=== PATIENT | female | born 1990 | race Caucasian/White ===

== ENCOUNTER 2018-02-19 13:21 | Emergency (ER) | payer MEDICAID ==
[2018-02-19] MEDS ORDERED: Lorazepam 2 MG/ML VIAL ONE (13:52)
--- NOTE | 2018-02-19 14:17 | CT ---
CT BRAIN WITHOUT CONTRAST: Date: 02/19/18 HISTORY: Trauma. Seizure. COMPARISON: None. FINDINGS: No acute territorial infarct or hemorrhage. No midline shift or mass effect. Paranasal sinuses and ma stoids are clear. IMPRESSION: No acute intracranial abnormality. POS: [facility]
== END 2018-02-19 14:15 | disposition home or self-care (01) ==
LOC: SCSER 13:21
DX: R56.9 Unspecified convulsions (principal); F41.9 Anxiety disorder, unspecified; F17.210 Nicotine dependence, cigarettes, uncomplicated; F32.9 Major depressive disorder, single episode, unspecified; Z79.899 Other long term (current) drug therapy
CPT/HCPCS: 70450; J2060